=== PATIENT | female | born 1950 | race Caucasian/White ===

== ENCOUNTER 2016-10-24 20:43 | Observation (INO) ==
[2016-10-24 21:31] LABS: Basophils # 0.1 K/mcL (0.0-0.2); Basophils % 0.4 %; Eosinophils # 0.3 K/mcL (0.0-0.6); Hematocrit 38.4 % (35.3-44.9); Hemoglobin 11.9 g/dL (11.5-15.4); Immature Granulocytes % 0.7 % (0-4); Immature Platelets 2.9 % (1.1-6.1); Lymphocytes # 3.8 K/mcL (0.6-4.6); Lymphocytes % 33.7 %; Mean Corpuscular Hemoglobin 26.6 pg (28.0-33.3); Mean Corpuscular Volume 85.7 fL (83.0-100.0); Mean Platelet Volume 10.2 fL (9.4-12.4); Monocytes % 9.2 %; Neutrophils # 5.9 K/mcL (1.6-8.9); Platelet Count 272 K/mcL (140-400); Red Blood Count 4.48 M/mcL (3.82-4.97); Red Cell Distribution Width 12.9 % (11.5-14.5)
[2016-10-24 21:35] LABS: Prothrombin Time 10.9 Seconds (9.4-12.1)
[2016-10-24 21:38] LABS: Activated Partial Thrombo Time 29.7 Seconds (26.0-36.0)
[2016-10-24 21:42] LABS: BUN/Creatinine Ratio 14 (6-26); Blood Urea Nitrogen 13 mg/dL (7-20); Calcium 9.9 mg/dL (8.6-10.8); Carbon Dioxide 23 mEq/L (19-29); Chloride 104 mEq/L (98-109); Glucose 186 mg/dL (70-99); Osmolality,Calculated 295 (280-300); Potassium 3.7 mEq/L (3.5-4.5); Sodium 140 mEq/L (136-145); eGFR For African Americans > 60 (> 60); eGFR For Non-African Americans > 60 (> 60)
[2016-10-24] MEDS ORDERED: *HR* Labetalol 20 MG/4 ML SYRINGE IVP ONE (22:01)
--- NOTE | 2016-10-24 22:01 | Emergency Department Note ---
Disposition Clinical Impression: Chest pain of uncertain etiology Disposition: Admitted As Inpatient Condition: Fair Chest Pain HPI - General Chief Complaint: ED Chest Pain Stated Complaint: chest pain started an hr ago Time Seen by Provider: 10/24/16 21:04 Source: patient, family Limitations: no limitations Vital Signs Reviewed: Yes Nursing Notes Reviewed: Yes - History of Present Illness HPI Narrative: Mrs. Salazar, a 65-year-old female, presents from home by POV with chief complaint of chest pain. Onset 7 PM and continuous to presentation. Described as sharp, stabbing, continuous, substernal with radiation intrascapular. With additional questioning, patient is unsure if were intrascapular pain is her chronic back pain or radiating pain. PMH: ACS with stent 2 years ago. Hypertension, hyperlipidemia, diabetes, COPD, asthma. No home O2 use, no history of smoking. No current anticoagulants or antiplatelets. No personal or familial history of coagulopathies, DVT, or PE. No history cancer or recent surgeries. ROS: Positive: Chest pain, dyspnea Negative: Fever, chills, palpitations, diaphoresis, jaw pain, arm pain, weakness , nausea, vomiting, abdominal pain Severity scale (1-10): 9 - Related Data Home Medications Medication Instructions Recorded Confirmed Aspirin Enteric Coated [Aspirin EC] 81 mg PO DAILY 01/16/15 10/24/16 Clopidogrel [Plavix] 75 mg PO DAILY 01/16/15 10/24/16 Insulin Aspart Prot/Insuln Asp 12 unit SQ TIDWM 01/16/15 10/24/16 [Novolog Mix 70-30 Flexpen Syrn] Insulin DETEMIR [Levemir] 40 unit SQ HS 01/16/15 10/24/16 Metoprolol [Lopressor] 25 mg PO BID 01/16/15 10/24/16 Pravastatin Sodium [Pravachol] 40 mg PO DAILY 07/18/15 10/24/16 Previous Rx's Medication Instructions Recorded Isosorbide MONOnitrate (24 HR) 30 mg PO DAILY #30 tab.er.24h 07/21/15 [Imdur] Lisinopril [Zestril] 40 mg PO DAILY #30 tablet 07/21/15 metFORMIN [Glucophage] 1,000 mg PO BID #0 07/21/15 Allergies Allergy/AdvReac Type Severity Reaction Status Date / Time No Known Allergies Allergy Verified 10/24/16 21:29 All systems ED: reviewed and negative except as stated. 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 HEENT: No facial asymmetry. Head is normocephalic and atraumatic. PERRLA. Trachea midline. Cardiovascular: Heart regular rate and rhythm without clicks, rubs, gallops, or murmurs. No JVD. PMI nondisplaced. No pedal edema. Bilateral radial and posterior tibial pulses 2/4. Respiratory: Symmetric chest rise with good respiratory effort. Bilateral breath sounds are clear without wheezing, crackles, or rhonchi. Abdomen: Bowel sounds present normoactive x-4 quadrants. Abdomen is soft, nondistended, and nontender. Musculoskeletal: Pain to palpation on patient's right chest along the distribution of the pectoralis minor; this is different in character than the patient's chest pain. Psych: Patient's affect is appropriate for situation. - General Limitations: no limitations General appearance: alert, in no apparent distress Course Course Narrative: Wells PE score is 1.5-low risk (tachycardia). Patient is PERC positive given tachycardia and age. Patient's EKG is unremarkable. Lab work is unremarkable specifically troponin is within normal limits. Chest x-ray shows no acute findings per radiology read. I discussed these findings with the patient as well as my concerns given her multiple cardiac risk factors; she and her agreed for admission to the hospital for continued evaluation. Spoke with admitting hospitalist who agrees to accept the patient for chest pain rule out ACS. Vital Signs Temperature 97.8 F 10/24/16 20:45 Pulse Rate 105 10/24/16 20:45 Respiratory Rate 18 10/24/16 20:45 Blood Pressure 198/108 10/24/16 20:45 O2 Sat by Pulse Oximetry 98 10/24/16 20:45 Temperature 97.4 F L 10/25/16 00:37 Pulse Rate 85 10/25/16 00:37 Respiratory Rate 16 10/25/16 00:37 Blood Pressure 181/90 10/25/16 00:37 O2 Sat by Pulse Oximetry 96 10/25/16 00:37 Oxygen Delivery Oxygen Delivery Room Air Chest Pain - Lab Data Result diagrams: 10/24/16 21:17 10/24/16 21:17 Lab Results 10/24/16 10/24/16 10/24/16 Range/Units 21:17 21:17 21:17 WBC 11.2 H (4.3-11.1) K/mcL RBC 4.48 (3.82-4.97) M/mcL Hgb 11.9 (11.5-15.4) g/dL Hct 38.4 (35.3-44.9) % MCV 85.7 (83.0-100.0) fL MCH 26.6 L (28.0-33.3) pg MCHC 31.0 L (31.6-35.5) g/dL RDW 12.9 (11.5-14.5) % Plt Count 272 (140-400) K/mcL MPV 10.2 (9.4-12.4) fL Immature Gran % 0.7 (0-4) % Seg Neutrophils % 53.0 % Lymphocytes % 33.7 % Monocytes % 9.2 % Eosinophils % 3.0 % Basophils % 0.4 % Neutrophils # 5.9 (1.6-8.9) K/mcL Lymphocytes # 3.8 (0.6-4.6) K/mcL Monocytes # 1.0 (0.0-1.3) K/mcL Eosinophils # 0.3 (0.0-0.6) K/mcL Basophils # 0.1 (0.0-0.2) K/mcL Immature Plt Fraction 2.9 (1.1-6.1) % PT 10.9 (9.4-12.1) Seconds INR 1.0 APTT 29.7 (26.0-36.0) Seconds D-Dimer 394 (0-500) ng/mLFEU Sodium 140 (136-145) mEq/L Potassium 3.7 (3.5-4.5) mEq/L Chloride 104 (98-109) mEq/L Carbon Dioxide 23 (19-29) mEq/L BUN 13 (7-20) mg/dL Creatinine 0.91 (0.57-1.11) mg/dL Est GFR ( Amer) > 60 (> 60) Est GFR (Non-Af Amer) > 60 (> 60) BUN/Creatinine Ratio 14 (6-26) Glucose 186 H (70-99) mg/dL Calculated Osmolality 295 (280-300) Calcium 9.9 (8.6-10.8) mg/dL Troponin I (0-0.03) ng/mL 10/24/16 Range/Units 21:17 WBC (4.3-11.1) K/mcL RBC (3.82-4.97) M/mcL Hgb (11.5-15.4) g/dL Hct (35.3-44.9) % MCV (83.0-100.0) fL MCH (28.0-33.3) pg MCHC (31.6-35.5) g/dL RDW (11.5-14.5) % Plt Count (140-400) K/mcL MPV (9.4-12.4) fL Immature Gran % (0-4) % Seg Neutrophils % % Lymphocytes % % Monocytes % % Eosinophils % % Basophils % % Neutrophils # (1.6-8.9) K/mcL Lymphocytes # (0.6-4.6) K/mcL Monocytes # (0.0-1.3) K/mcL Eosinophils # (0.0-0.6) K/mcL Basophils # (0.0-0.2) K/mcL Immature Plt Fraction (1.1-6.1) % PT (9.4-12.1) Seconds INR APTT (26.0-36.0) Seconds D-Dimer (0-500) ng/mLFEU Sodium (136-145) mEq/L Potassium (3.5-4.5) mEq/L Chloride (98-109) mEq/L Carbon Dioxide (19-29) mEq/L BUN (7-20) mg/dL Creatinine (0.57-1.11) mg/dL Est GFR ( Amer) (> 60) Est GFR (Non-Af Amer) (> 60) BUN/Creatinine Ratio (6-26) Glucose (70-99) mg/dL Calculated Osmolality (280-300) Calcium (8.6-10.8) mg/dL Troponin I 0.00 (0-0.03) ng/mL - EKG Data EKG attestation: Yes I reviewed and interpreted this EKG. EKG results narrative: Normal sinus at 99. Normal ST segments. Normal QRS. Normal axis. Unchanged from June 2015. Attestation Statement - Attestation Attestation: I examined this patient and my medical decision-making was reviewed with the TREE TRIMMING LINE TECHNICIAN/PA/Advanced Practice Nurse/Resident Physician. I agree with the documented findings, disposition and treatment plan as described except to the extent set forth below. Patient emergency department with chest pain. Patient states she was at a birthday democrat for a family member. When she got home started feeling pain in the right side of her chest. It hurts when she takes a deep breath. Denies cough. Denies fever. Denies any history of blood clots. No recent travel. She does not have cancer. She does have a history of an NC. On exam she is in no distress. She does not some tenderness over the right upper chest area where she is hurting. Plan. Cardiac workup. D-Dimer. Patient with a negative cardiac workup. We did review her lab report from last June. Concerning with a 60% LAD lesion. She is admitted for further cardiac workup.
[2016-10-25] MEDS ORDERED: Naloxone 0.4 MG/ML INJ IVP PRN (03:35)
[2016-10-25] MEDS ORDERED: Acetaminophen 325 MG TABLET PO PRN (03:35)
[2016-10-25] MEDS ORDERED: Ketorolac 30 MG/ML VIAL IVP PRN (03:35)
[2016-10-25] MEDS ORDERED: *HR* Dextrose 50 % in Water (Syg) 50 ML SYRINGE IVP PRN (03:37)
[2016-10-25] MEDS ORDERED: D5% in Water 1,000 ML IVC PRN (03:37)
[2016-10-25] MEDS ORDERED: Dextrose Gel 15 GM PO PRN ×2 (03:37)
--- NOTE | 2016-10-25 05:45 | Internal Med History&Physical ---
Date of Encounter: 10/25/16 Time of Encounter: 02:30 Assessment and Plan (1) DVT prophylaxis Current visit: Yes Status: Acute Heparin subcutaneously (2) Chest pain Current visit: No Status: Acute Etiology is undetermined. Need to rule out ACS because patient has history of CAD. - Continue cardiac monitoring - 3 sets of troponin. - Chest x-ray and EKG unremarkable. - D-dimer negative - Patient has a chest wall tenderness, also consider skelentomuscular pain - No stress test at this point because patient still has chest pain. - Patient had echo in December 2015, result unremarkable. September repeat echocardiogram. Qualifiers: Chest pain type: chest pain on breathing Qualified Code(s): R07.1 - Chest pain on breathing (3) CAD (coronary artery disease) Current visit: No Status: Acute Continue home medications aspirin, Plavix, beta ratna, nitrates, and statin. Qualifiers: Coronary Disease-Associated Artery/Lesion type: [place] artery [place] vs. transplanted heart: [place] heart Associated angina: angina presence unspecified Qualified Code(s): I25.10 - Atherosclerotic heart disease of [place] coronary artery without angina pectoris (4) HTN (hypertension) Current visit: No Status: Chronic Continue home medications Qualifiers: Hypertension type: essential hypertension Qualified Code(s): I10 - Essential (primary) hypertension (5) Diabetes Current visit: No Status: Acute Continue basal and sliding scale insulin. 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 Salazar is a 65 year old female presented to ER for chest pain. Patient has history of CAD S/P stent 2 years ago. She said pain started from 7 PM, located on the right chest wall, sharp, constant, no radiation, 8 out of 10. Pain is getting worse when patient takes deep breath. Patient denies fever, cough, nausea, vomiting, diaphoresis. Patient is admitted for further monitoring. I discussed the CODE STATUS with patient. Full code placed. Past Med Surg Social Fam HX - Past Medical History Medical history: coronary artery disease, diabetes, hyperlipidemia, hypertension , myocardial infarction Psychiatric history: no psych history - Past Surgical History Surgical History: angioplasty/stent - Social History Smoking Status: Never smoker Smokeless Tobacco Status: No Alcohol use: none Drug use: none - Family History Father Hx Family Cardiac Disorders: Yes Internal Medicine - H&P: Meds Aspirin Enteric Coated [Aspirin EC] 81 mg PO DAILY 01/16/15 [History] Clopidogrel [Plavix] 75 mg PO DAILY 01/16/15 [History] Insulin Aspart Prot/Insuln Asp [Novolog Mix 70-30 Flexpen Syrn] 12 unit SQ TIDWM 01/16/15 [History] Insulin DETEMIR [Levemir] 40 unit SQ HS 01/16/15 [History] Metoprolol [Lopressor] 25 mg PO BID 01/16/15 [History] Pravastatin Sodium [Pravachol] 40 mg PO DAILY 07/18/15 [History] Isosorbide MONOnitrate (24 HR) [Imdur] 30 mg PO DAILY #30 tab.er.24h 07/21/15 [ Rx] Lisinopril [Zestril] 40 mg PO DAILY #30 tablet 07/21/15 [Rx] metFORMIN [Glucophage] 1,000 mg PO BID #0 07/21/15 [Rx] Allergies No Known Allergies Allergy (Verified 10/24/16 21:29) All Systems PM: A 10-system review of systems was performed and is negative for pertinent findings except as documented above in the HPI. - Constitutional Vitals: Temp Pulse Resp BP Pulse Ox 98.0 F 87 20 143/81 96 10/25/16 03:26 10/25/16 03:26 10/25/16 03:26 10/25/16 03:26 10/25/16 03:26 General appearance: Present: A&O X 3, no acute distress, answers questions appropriately - Head Head exam: Present: atraumatic, normocephalic - Eye Eye exam: Present: PERRL, conjuntiva pink, sclera anicteric Pupils: Present: PERRL - Neck Neck exam general surgery: Present: supple, trachea midline. Absent: lymphadenopathy - Respiratory Respiratory exam: Present: chest wall tenderness, CTAB. Absent: accessory muscle use, rales, rhonchi, wheezes - Cardiovascular Cardiovascular exam: Present: RRR, +S1, +S2. Absent: diastolic murmur, gallop, rubs, systolic murmur - GI/Abdominal GI/Abdominal exam: Present: normal bowel sounds, soft, no peritoneal signs. Absent: distended, tenderness - Extremities Exam Extremities exam: Present: warm, radial pulses palpable and symetrical. Absent : calf tenderness, cyanotic, pedal edema - Neurological Exam Neurological exam: Present: CN II-XII intact, oriented X3, no focal deficits. Absent: pronater drift, facial droop, speech deficit - Skin Skin exam: Present: dry, intact Internal Med - H&P Results - Labs CBC & Chem 7: 10/24/16 21:17 10/24/16 21:17 Labs: Cardiac Enzymes 10/25/16 Range/Units 03:50 Troponin I 0.00 (0-0.03) ng/mL - EKG Data -: EKG Interpreted by Myself EKG shows normal: sinus rhythm Rate: normal
[2016-10-25] MEDS: *HR* Heparin 5,000 UNIT/ML VIAL SQ SCH ×2 (06:16→17:41)
[2016-10-25] MEDS ORDERED: Insulin LISPRO 300 UNITS/3 ML VIAL SQ SCH ×3 (07:30→21:00)
[2016-10-25] MEDS: Isosorbide MONOnitrate (24 HR) 30 MG TAB.ER.24H PO SCH (09:51)
[2016-10-25] MEDS: Lisinopril 20 MG TABLET PO SCH (09:51)
[2016-10-25] MEDS: Aspirin Enteric Coated 81 MG Tablet PO SCH (09:52)
[2016-10-25] MEDS: Insulin LISPRO 300 UNITS/3 ML VIAL SQ SCH ×3 (09:56→17:40)
--- NOTE | 2016-10-25 16:24 | Electrocardiograph Report ---
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
--- NOTE | 2016-10-25 18:27 | Event Note ---
Date of Encounter: 10/25/16 Time of Encounter: 17:00 Patient seen and examined. On examination, patient sitting upright in her chair conversing with her . Patient stating she still has chest pain. She is complaining of epigastric/mid sternal chest pain. Regarding cardiac etiologies, troponins negative 3. Echocardiogram unremarkable with ejection fraction of 60-65% with mild diastolic dysfunction. She is euvolemic on examination. She denies shortness of breath while at rest but endorses dyspnea on exertion. She states that she has recently had pulmonary function testing outpatient and has recently been diagnosed with COPD. She is a non-/never smoker with no known significant occupational or secondhand exposure. She stated that she was started on COPD inhalers and medications and states this helped her shortness of breath a little bit but she continues to get extremely fatigued and states that she has had no energy. She states that she is lost approximately 20 pounds over the past year. She states for the past 2 years that her energy and has been decreasing and her fatigue has been increasing to the point where she is barely able to perform her activities of daily living. She denies any significant social stressors are significant history of depression or suicidal ideations. She denies ever having an EGD or an evaluation of her epigastric pain. Will obtain LFTs and lipase and an abdominal CT to evaluate her early satiety and her epigastric pain. She states that the pain does radiate to between her shoulder blades consistent with possible gallbladder etiology. She does have her gallbladder and to her knowledge, she has never had labs drawn. She does appear to have regular contact with her Gas And Oil Checker and with her PCP and in review of her chart in [facility] , her symptoms seem to vary a bit and therefore difficult to pinpoint. It does not appear as if her pain is cardiac or pulmonic- will investigate intra- abdominal etiologies. No recent TSH, B12, folate, vitamin D on file- will check too. No recent A1C. patient stating that she frequently has to wake up in the middle of the night to eat something because she states that she does not eat very much for dinner but continues to take her insulin and she states that she has had a lot of hypoglycemic episodes. Of note, patient stating she feels very shaky and is symptomatic if her glucoses go below 100. We will check an A1c. Recommend following outpatient with DM clinic as well. ITS Impressions Chest X-Ray 10/24/16 21:10 IMPRESSION: No acute process. D/ / Demetrius Butler MD / Demetrius Butler MD Interpreting Provider: Demetrius Butler MD Echocardiogram impressions: LVEF 60-65%. Normal left ventricular size and systolic function. There is evidence of mild diastolic dysfunction of the left ventricle. Normal right ventricular size and function. No significant valvular dysfunction. No pulmonary hypertension.
[2016-10-25 19:46] LABS: Albumin 3.6 g/dL (3.5-5.0); Albumin/Globulin Ratio 0.9 (1.1-2.2); Bilirubin,Direct 0.1 mg/dL (0.0-0.5); Bilirubin,Indirect 0.5 mg/dL (0.0-1.2); Bilirubin,Total 0.6 mg/dL (0.2-1.2); Globulin 3.9 g/dL (2.4-3.5); Total Protein 7.5 g/dL (6.0-8.3)
[2016-10-25 20:23] LABS: Folate 8.1 ng/mL (7.0-31.4)
[2016-10-25] MEDS ORDERED: Insulin DETEMIR 100 UNIT/ML X5UNITS SQ SCH (21:00)
[2016-10-26] MEDS: *HR* Heparin 5,000 UNIT/ML VIAL SQ SCH (05:37)
[2016-10-26] MEDS: Lisinopril 20 MG TABLET PO SCH (09:34)
[2016-10-26] MEDS: Isosorbide MONOnitrate (24 HR) 30 MG TAB.ER.24H PO SCH (09:34)
[2016-10-26] MEDS: Aspirin Enteric Coated 81 MG Tablet PO SCH (09:35)
[2016-10-26] MEDS: Insulin LISPRO 300 UNITS/3 ML VIAL SQ SCH ×2 (09:35→12:27)
--- NOTE | 2016-10-26 11:26 | Discharge Summary ---
Date of Encounter: 10/26/16 Time of Encounter: 09:15 - Discharge Diagnosis (1) Hiatal hernia Priority: Secondary Status: Acute Comments: Pt reports history of early satiety, heartburn symptoms and SOB after even small amount of po food or fluid. CT shows small hiatal hernia, cholelithiasis, and no evidence of acute intra-abdominal inflammator process or fluid collection. This could likely be the cause of her chest pain, SOB and early satiety. Will follow up outpatient with PCP for referral as needed. Will send pt home on Omeprazole as discussed with pt. (2) Epigastric abdominal pain Priority: Secondary Status: Chronic Comments: Pt reports history of epigastric pain and heartburn symptoms, as well as early satiety and SOB after po intake. Not tender to palpation and pt denies pain at this time. Most likely due to hiatal hernia and some GERD symptoms. Plan as above. (3) Chest pain Priority: Primary Status: Acute Comments: Pt reports R chest pain , that was less intense than her [place], however it was the same quality. She denies radiation, SOB, N/V, but does report SWARTZ and worsening of pain with movement, cough, sneezing, or deep inspiration. It is tender to palpation. Rates it 1-2/10 when sitting. Pain is most likely musculoskeletal intercostal chest pain. Chest xray negative for acute process, EKG NSR D-dimer negative. Echo done yesterday shows LVEF 60-65%, normal systolic function, mild diastolic dysfunction, no significant valvular dysfunction, and no pulmonary HTN. Pt denies change in routine recently. Tylenol and heat for pain. Qualifiers: Chest pain type: chest pain on breathing Qualified Code(s): R07.1 - Chest pain on breathing (4) Weight loss, unintentional Priority: Secondary Status: Acute Comments: Pt reports decreased appetite and about 18-20# weight loss over the last 12-18 mos due to early satiety and epigastric pain. Will give pt Omeprazole and she will follow up with PCP for any necessary referral for hiatal hernia. (5) Hyperlipemia Priority: Secondary Status: Chronic Comments: Continue home medications. Qualifiers: Hyperlipidemia type: unspecified Qualified Code(s): E78.5 - Hyperlipidemia , unspecified (6) Diabetes Priority: Secondary Status: Acute Comments: A1c 7.0% in August. Continue home medications and accuchecks. Qualifiers: Diabetes mellitus type: type 2 Diabetes mellitus complication status: without complication Diabetes mellitus superintendent container terminal insulin use: with chcf use Qualified Code(s): E11.9 - Type 2 diabetes mellitus without complications ; Z79.4 - USP (current) use of insulin (7) DVT prophylaxis Priority: Secondary Status: Acute Comments: Heparin subcutaneously - Discharge Medications Prescriptions: Omeprazole [PriLOSEC] 20 mg PO DAILY #30 cap Home Medications: Aspirin Enteric Coated [Aspirin EC] 81 mg PO DAILY 01/16/15 [History] Clopidogrel [Plavix] 75 mg PO DAILY 01/16/15 [History] Metoprolol [Lopressor] 12.5 mg PO BID 01/16/15 [History] Pravastatin Sodium [Pravachol] 80 mg PO DAILY 07/18/15 [History] Isosorbide MONOnitrate (24 HR) [Imdur] 30 mg PO DAILY #30 tab.er.24h 07/21/15 [ Rx] Lisinopril [Zestril] 40 mg PO DAILY #30 tablet 07/21/15 [Rx] metFORMIN [Glucophage] 1,000 mg PO BID #0 07/21/15 [Rx] Aclidinium [place] [Tudorza Pressair] 1 puff IH BID 10/25/16 [History] Amlodipine Besylate 10 mg PO DAILY 10/25/16 [History] Cinnamon Bark [Cinnamon] 500 mg PO BID 10/25/16 [History] Fish Oil/Dha/Epa [Fish Oil 1,200 mg Fish Oil] 1 cap PO DAILY 10/25/16 [History] Garlic [Odorless Garlic] 300 mg PO DAILY 10/25/16 [History] Humalog Kwikpen U-100 10 unit SQ TIDWM 10/25/16 [History] Insulin Glargine,Hum.rec.anlog [Basaglar Kwikpen U-100] 40 unit SQ HS 10/25/16 [ History] Nitroglycerin [Nitrostat] 0.4 mg SL PRN PRN 10/25/16 [History] Vitamin B-12 1,000 mcg PO DAILY 10/25/16 [History] hydroCHLOROthiazide [Hydrochlorothiazide] 12.5 mg PO 3XW 10/25/16 [History] Omeprazole [PriLOSEC] 20 mg PO DAILY #30 cap 10/26/16 [Rx] Allergies/Adverse Reactions: Allergies No Known Allergies Allergy (Verified 10/24/16 21:29) Procedures/tests Complete & Pending: Procedures Performed prior 72 hours Category Date Time Status CT abd pelvis w iv no oral [CT] Routine Cat Scan 10/25/16 18:17 Completed ECG 12 lead ECG [ECG] AM 0600 Y 10/25/16 06:00 Ordered EV echocardiogram Routine Y 10/25/16 05:56 Completed Date of admission: 10/25/16 00:14 Primary care physician: Prabhu Harris DO Discharging clinician: Nancy Brown Anticipated date of discharge: 10/26/16 - Patient Status Disposition: Home, Self-Care Condition: Good Functional capacity at discharge: independent ambulation Overall status at discharge: patient is back to baseline - Discharge Instructions Instructions: Hiatal Hernia (DC), Gallstones (DC), Diabetes Mellitus Type 2 in Adults (DC) Follow Up With: Prabhu Harris DO [Primary Care Provider] - 11/02/16 12:30 pm Marquez Ellison DO [Partnered Physician] - (Office will call you with a hospital follow up appointment within 3 days. ) Additional Instructions: Follow up with your PCP and Dr. Sánchez as scheduled. Remember to try to eat smaller, more frequent meals. Watch spicy foods, fatty foods, and larger meals Make sure that you stay hydrated Tylenol for your chest wall pain Start your Omeprazole tomorrow morning before you eat. Return to the ER as needed for any other problems or concerns or if your chest pain returns. - Diet and Activity Activity: increase activity as tolerated Diet: low fat, low cholesterol, other Hospital course: Ms. Salazar is a 65 year old female past medical history of coronary artery disease status post stent 2 years ago. She presented to the emergency room yesterday for chest pain, sudden onset that began at 7 PM while sitting. It was located in the right chest sharp and constant without any radiation. She says it was an 8 out of 10. She reports increase in pain with deep inspiration , movement, sneezing, or coughing. It is tender to palpation. She denies radiation of the pain, shortness of breath, nausea or vomiting. She said she did have dyspnea with the chest pain with deep inspiration. She says it is the same chest pain that she had when she had her MRI, although less intense, but the same quality. Today she said it is a 1-2/10 while she sitting. This is most likely musculoskeletal chest pain in nature. I suggested Tylenol and heat as needed. Troponins were negative, EKG was normal sinus rhythm. Echocardiogram showed ejection fraction at 60-65%, normal systolic function, mild diastolic dysfunction, no significant valvular dysfunction and no pulmonary hypertension. Wall motion was normal. Her d-dimer was negative, chest x-ray was negative for any acute processes. Patient also reports lengthy history of early satiety with eating, 20 pound weight loss in about 12-18 months, and heartburn symptoms with eating. She also reports that with any by mouth intake should become short of breath or feeling. She does have a small hiatal hernia, rest of abdomen is negative for any acute processes or inflammation. Will send patient home on omeprazole 20 mg by mouth daily in the morning before eating, and also will have patient follow-up with primary care physician for possible referral to surgery. I have instructed her to eat small frequent meals and avoid spicy, fatty foods. We have made appointment with primary care and with Dr. Ellison for cardiology follow-up. Patient is aware of need to control glucose better. She says she does not need to see nutrition educator. I also discussed her elevated B12 level and ask her to hold off on taking that for the next 4-5 days. Explained to her that it was not dangerous and is water-soluble. Vital segment stable patient is appropriate for discharge. - Time Spent with Patient Total time spent providing and/or coordinating discharge services: Less than 30 minutes - Constitutional Vitals: Temp Pulse Resp BP Pulse Ox 98.1 F 83 16 133/80 95 10/26/16 07:59 10/26/16 07:59 10/26/16 07:59 10/26/16 07:59 10/26/16 07:59 General appearance: Present: cooperative, A&O X 3, pleasant, no acute distress, answers questions appropriately - Head Head exam: Present: normal inspection - Eye Eye exam: Present: normal appearance, conjuntiva pink - ENT ENT exam: Present: mucous membranes moist, normal exam, normal external ear exam - Neck Neck exam general surgery: Present: normal inspection. Absent: lymphadenopathy , tenderness - Respiratory Respiratory exam: Present: CTAB. Absent: decreased breath sounds, prolonged expiratory phase, rales, respiratory distress, rhonchi, stridor, wheezes - Cardiovascular Cardiovascular exam: Present: RRR, +S1, +S2. Absent: clicks, diastolic murmur, gallop, systolic murmur - GI/Abdominal GI/Abdominal exam: Present: normal bowel sounds, soft. Absent: hepatomegaly, tenderness - Extremities Exam Extremities exam: Present: normal capillary refill, normal inspection, warm. Absent: pedal edema, tenderness - Neurological Exam Neurological exam: Present: alert, oriented X3, no focal deficits, strengths equal and symetr throughout. Absent: facial droop, speech deficit - Skin Skin exam: Present: dry, intact. Absent: rash, urticaria
[2016-10-26 11:33] VITALS: BP 119/73
--- NOTE | 2016-10-26 13:50 | Cardiology Consult Note ---
Date of Encounter: 10/26/16 Time of Encounter: 13:26 Assessment and Plan (1) Chest pain Current Visit: No Status: Acute Patient presented with chest pain sudden onset 2 days ago. Patient's workup thus far is negative. D-dimer negative. Troponins negative times 3 of 0.00, EKG shows normal sinus rhythm no signs of ischemia, and patient's pain was 8/10 at time of onset is now reduced 1-2/10 but still reproducible with palpation. Patient's chest wall area in question on the right-sided parasternal area is very tender to palpation without radiation and has been constant. Patient's chest pain does not appear to be her anginal equivalent. Patient states the pain is similar in quality but is reproducible this time. During her heart attack her chest pain was not reproducible and had other symptoms of radiation weakness and numbness tingling down her right arm. Echocardiogram taken 1 day ago shows an EF of 60-65%. Patient's symptoms appeared to be musculoskeletal in nature considering her right chest wall. He could continue with medical management use of Tylenol to control pain symptoms and cold compresses to control information followed by warm moist heat for mobility after inflammation his controlled. Also recommended close monitoring for any changes in symptoms suspicious for cardiac involvement. Qualifiers: Chest pain type: chest pain on breathing Qualified Code(s): R07.1 - Chest pain on breathing Discussion w patient/family: The assessment and plan as outlined above was discussed with the patient and/or family members who expressed understanding and agreement. All questions were answered. Thank you for involving us in the care of your patient. Please call with any questions. History of Present Illness Consult date: 10/26/16 Requesting physician: Nancy Brown Consult reason: Chest Pain Chief complaint: Chest wall pain, worst with inhalation History of present illness: Ms. Salazar is a 65 year old female with past medical history for CAD and hyperlipidemia hypertension diabetes and previous [place] who presented to days ago with sudden onset of chest pain to the right side of chest reproducible with palpation. Patient states that pain was 8 out of 10 started suddenly sharp and pleuritic. Worse with inhalation and palpation. Patient states that she took 2 doses of nitroglycerin which had no effect on the character of the pain. Patient states that her chest pain similar to that of her previous heart attack 2 years ago but did not have all the other characteristics of numbness tingling and weakness in her right extremity. Patient states she was worried about it being another heart attack and came to the ED then admitted to medicine. Patient denies strenuous activity prior. Patient denies dyspnea on exertion, lightheadedness, nausea, vomiting, diarrhea, changes in vision, and cough. Past Med Surg Social Fam HX - Past Medical History Attestation: Yes The following information was validated with the patient. Source: patient Medical history: coronary artery disease, diabetes, hyperlipidemia, hypertension , myocardial infarction Psychiatric history: no psych history - Past Surgical History Surgical History: angioplasty/stent - Social History Smoking Status: Never smoker Smokeless Tobacco Status: No Alcohol use: none Drug use: none Current living situation: Home Activity Level: Independent ambulation - Family History Father Hx Family Cardiac Disorders: Yes Medications and Allergies Aspirin Enteric Coated [Aspirin EC] 81 mg PO DAILY 01/16/15 [History] Clopidogrel [Plavix] 75 mg PO DAILY 01/16/15 [History] Metoprolol [Lopressor] 12.5 mg PO BID 01/16/15 [History] Pravastatin Sodium [Pravachol] 80 mg PO DAILY 07/18/15 [History] Isosorbide MONOnitrate (24 HR) [Imdur] 30 mg PO DAILY #30 tab.er.24h 07/21/15 [ Rx] Lisinopril [Zestril] 40 mg PO DAILY #30 tablet 07/21/15 [Rx] metFORMIN [Glucophage] 1,000 mg PO BID #0 07/21/15 [Rx] Aclidinium [place] [Tudorza Pressair] 1 puff IH BID 10/25/16 [History] Amlodipine Besylate 10 mg PO DAILY 10/25/16 [History] Cinnamon Bark [Cinnamon] 500 mg PO BID 10/25/16 [History] Fish Oil/Dha/Epa [Fish Oil 1,200 mg Fish Oil] 1 cap PO DAILY 10/25/16 [History] Garlic [Odorless Garlic] 300 mg PO DAILY 10/25/16 [History] Humalog Kwikpen U-100 10 unit SQ TIDWM 10/25/16 [History] Insulin Glargine,Hum.rec.anlog [Basaglar Kwikpen U-100] 40 unit SQ HS 10/25/16 [ History] Nitroglycerin [Nitrostat] 0.4 mg SL PRN PRN 10/25/16 [History] Vitamin B-12 1,000 mcg PO DAILY 10/25/16 [History] hydroCHLOROthiazide [Hydrochlorothiazide] 12.5 mg PO 3XW 10/25/16 [History] Omeprazole [PriLOSEC] 20 mg PO DAILY #30 cap 10/26/16 [Rx] Allergies No Known Allergies Allergy (Verified 10/24/16 21:29) All Systems Review: A 10-system review of systems was performed and is negative for pertinent findings except as documented above in the HPI. - Constitutional Constitutional: no anorexia, no chills, no fatigue, no fever(s), no headache(s) , no lethargy, no malaise, no weakness - EENT Eyes: no blurred vision, no loss of vision Nose, mouth and throat: no dysphagia - Cardiovascular Cardiovascular: chest pain at rest, no chest pain with exertion, no diaphoresis , no dyspnea at rest, no dyspnea on exertion, no irregular heart rhythm, no radiating jaw, neck or arm pain, no leg edema, no lightheadedness, no palpitations, no rapid heart rate, no slow heart rate, no syncope - Respiratory Respiratory: dyspnea, no hemoptysis, no wheezing - Gastrointestinal Gastrointestinal: no abdominal pain, no coffee ground emesis, no hematochezia, no melena, no nausea - Neurological Neurological: no dizziness, no focal weakness, no loss of vision, no tingling Physical Examination Vital Signs, Last 4 Hours Temp Pulse Resp BP Pulse Ox 10/26/16 11:30 97.6 F 75 16 119/73 97 General: Conversant, No Apparent Distress HEENT: Atraumatic, Normocephaly, Mucus Membranes Moist Neck: No JVD Cardiac: Reg Rate and Rhythm, Normal S1 and S2 Lungs: Normal Breath Sounds, No Wheeze, Rales, Rhonchi Neuro: Alert and responsive, No focal deficits noted Abdomen: Soft, Non-Tender Skin: No rashes noted on visualized skin Musculoskeletal: Other (Reproducible chest wall tenderness just right of the sternum from approximately second to fifth intercostal space. Appears very tender to palpation) Extremities: No Clubbing, No Cyanosis, No Edema, Normal Pulses Results 10/24/16 21:17 10/24/16 21:17 Lab Results 10/25/16 10/25/16 18:39 18:39 Total Bilirubin 0.6 AST 12 ALT 12 Alkaline Phosphatase 89 Lipase 52 TSH 0.909 - EKG Interpretation EKG results cardiology: personally reviewed, normal ECG, sinus rhythm, no diagnostic ischemia Consult Discharge Plan - Plan Instructions: Hiatal Hernia (DC), Gallstones (DC), Diabetes Mellitus Type 2 in Adults (DC) Additional Instructions: Follow up with your PCP and Dr. Sánchez as scheduled. Remember to try to eat smaller, more frequent meals. Watch spicy foods, fatty foods, and larger meals Make sure that you stay hydrated Tylenol for your chest wall pain Start your Omeprazole tomorrow morning before you eat. Return to the ER as needed for any other problems or concerns or if your chest pain returns. Referrals: Prabhu Harris DO [Primary Care Provider] - 11/02/16 12:30 pm Marquez Ellison DO [Partnered Physician] - (Office will call you with a hospital follow up appointment within 3 days. ) Prescriptions: Omeprazole [PriLOSEC] 20 mg PO DAILY #30 cap
== END 2016-10-26 15:53 | disposition home or self-care (01) ==
LOC: 3BNU 20:43 → EMEROO 20:43 → 3BNU 10-25 00:29
PROVIDERS: ADMIT Internal Medicine; ATTEND Nurse Practitioner Family